=== PATIENT | female | born 1985 | race Caucasian/White ===

== ENCOUNTER 2017-08-22 18:41 | Emergency (ER) | payer SELFPAY ==
[2017-08-22 19:04] VITALS: BP 164/107
--- NOTE | 2017-08-22 19:30 | UC ---
Abdominal Pain Female HPI - HPI Summary HPI Summary: 32 yo female with constant RLQ abd pain since 6PM yesterday n/v x 3 hurts to move no UTI symptoms hx Hep C and DM11 has had an intentional 80 lb wt loss in past year - History of Current Complaint Chief Complaint: UCAbdominalPain Stated Complaint: ABDOMINAL PAIN Time Seen by Provider: 08/22/17 19:09 Hx Obtained From: Patient Hx Last Menstrual Period: 08/10/17 tubal Onset/Duration: Gradual Onset, Lasting Hours Timing: Constant Severity Initially: Severe Severity Currently: Severe Pain Intensity: 9 Pain Scale Used: 0-10 Numeric Location: Discrete At: RLQ Radiates: No Character: Aching, Dull Aggravating Factor(s): Movement Associated Signs and Symptoms: Positive: Nausea, Vomiting Allergies/Adverse Reactions: Allergies Allergy/AdvReac Type Severity Reaction Status Date / Time codeine Allergy Intermediate Hives Verified 08/22/17 19:04 Home Medications: Home Medications metFORMIN* [Glucophage 500 MG TAB *] 500 mg PO BID 08/22/17 [History Confirmed 08/22/17] PMH/Surg Hx/FS Hx/Imm Hx Previously Healthy: Yes Endocrine History: Diabetes Cardiovascular History: Hypertension Other History Of: Hepatitis C - Surgical History Surgical History: Yes Surgery Procedure, Year, and Place: c-sections x4 - Family History Known Family History: Positive: Hypertension - Social History Alcohol Use: None Substance Use Type: None Smoking Status (MU): Heavy Every Day Tobacco Smoker Type: Cigarettes Amount Used/How Often: 1/2 ppd Review of Systems Constitutional: Negative Skin: Negative Eyes: Negative ENT: Negative Respiratory: Negative Cardiovascular: Negative Gastrointestinal: Abdominal Pain, Vomiting, Nausea Genitourinary: Negative Motor: Negative Neurovascular: Negative Musculoskeletal: Negative Neurological: Negative Psychological: Negative Is Patient Immunocompromised?: No All Other Systems Reviewed And Are Negative: Yes Physical Exam Triage Information Reviewed: Yes Appearance: Well-Appearing, Well-Nourished, Pain Distress Vital Signs: Initial Vital Signs Temp 98.5 F 08/22/17 18:56 Pulse 99 08/22/17 18:56 Resp 18 08/22/17 18:56 BP 164/107 08/22/17 18:56 Pulse Ox 100 08/22/17 18:56 Eyes: Positive: Conjunctiva Clear ENT: Positive: Hearing grossly normal, Uvula midline. Negative: Nasal congestion, Nasal drainage, Trismus, Muffled voice Dental: Positive: Other: - poor dentition Neck: Positive: Supple, Nontender Respiratory: Positive: Lungs clear, Normal breath sounds, No respiratory distress, No accessory muscle use Cardiovascular: Positive: RRR, No Murmur Abdomen Description: Positive: Distended. Negative: Nontender, CVA Tenderness ( R), CVA Tenderness (L), Guarding Bowel Sounds: Positive: Present Musculoskeletal: Positive: ROM Intact, No Edema Neurological: Positive: Alert Psychological Exam: Normal Skin Exam: Normal Abd Pain Female Course/Dx - Course Course Of Treatment: decline EMS transfer. willing to go to to [facility] via POV. d /w Katelynn Woo [employer] EDITOR - Differential Dx/Diagnosis Provider Diagnoses: abdominal pain of uncertain cause Discharge - Sign-Out/Discharge Documenting (check all that apply): Discharge - Discharge Plan Condition: Stable Disposition: TRANS HIGHER LVL OF CARE FAC Referrals: Non Staff,Doctor [Primary Care Provider] - Additional Instructions: To [facility] ER they are expecting you don't ear or drink anything You need further investigation of you symptoms tonight I spoke to Katelynn Woo, SCI[employer]IFIC PUBLICATIONS EDITOR - Billing Disposition and Condition Condition: STABLE Disposition: EMTALA Images Front/Back of Body, Lg ([place]): 1 - tender here
== END 2017-08-22 19:28 | disposition short-term general hospital (02) ==
LOC: UCCORT 18:41
DX: R10.31 Right lower quadrant pain (principal); Z88.5 Allergy status to narcotic agent; F17.210 Nicotine dependence, cigarettes, uncomplicated
CPT/HCPCS: 81003; 84702; 99202; G0463

== ENCOUNTER 2017-10-26 11:13 | Emergency (ER) | payer SELFPAY ==
[2017-10-26 11:39] VITALS: BP 131/71
[2017-10-26] MEDS ORDERED: Ketorolac INJ* 60 MG/2 ML VIAL IV PUSH ONE (11:58)
[2017-10-26] MEDS ORDERED: Ketorolac INJ* 60 MG/2 ML VIAL IM ONE (12:03)
--- NOTE | 2017-10-26 12:40 | RAD ---
INDICATION: Severe lower abdominal pain. Question renal stone. History of renal stones and cysts. COMPARISON: No relevant prior exams available on the [facility] PACS for comparison. TECHNIQUE: Multidetector CT images were obtained from the lung bases to the ischial tuberosities. Evaluation of the viscera is limited without IV contrast. Multiplanar reformation. REPORT: Unremarkable visualized inferior thorax. Unremarkable unenhanced liver. Potential 2 mm calcified stone within the dependent portion of the gallbladder at the fundus. Negative for biliary dilatation. Unremarkable pancreas and spleen. Negative for CT abnormality of the upper GI, small bowel, appendix visualized medial posterior to the cecum, or colon. Negative for ascites, free air, hernias. Normal adrenal glands. Negative for urolithiasis or hydronephrosis. Small cortical cyst at the midpole of the RIGHT kidney. No suspicious focal renal lesions evident within limits of noncontrast CT. No abnormality of the nondilated ureters. Moderately distended urinary bladder with normal wall thickness. Unremarkable leftward deviated anteverted uterus. 2.7 cm maximum dimension relative hyperdense region at the LEFT adnexa concerning for a potential hemorrhagic ovarian cyst. Unremarkable RIGHT adnexal region. Negative for lymphadenopathy. Normal diameter abdominal aorta and iliac arteries. Physiologic distention of the IVC. Bilateral L5 spondylolysis with minimal grade 1 L5-S1 anterolisthesis. IMPRESSION: 1. Negative for urolithiasis or hydronephrosis. 2. Indeterminant findings at the LEFT adnexal region concerning for potential hemorrhagic cyst of the LEFT ovary. Consider pelvic ultrasound for further evaluation. 3. Potential cholelithiasis.
--- NOTE | 2017-10-26 12:56 | UC ---
Abdominal Pain Female HPI - HPI Summary HPI Summary: lower abdominal pain x 1 day pain is sever 10 out of 10 radiating to her groin and back worse with movement , better, with rest no n/v/d/c , no dysuria - History of Current Complaint Chief Complaint: UCAbdominalPain Stated Complaint: ABD/BACK PAIN/[place] Time Seen by Provider: 10/26/17 11:46 Hx Obtained From: Patient Hx Last Menstrual Period: 09/30/17 Onset/Duration: Gradual Onset, Lasting Days - 1, Still Present Timing: Constant Severity Initially: Moderate Severity Currently: Severe Pain Intensity: 10 Location: Suprapubic Radiates to: Back, Inguinal Character: Cramping, Sharp, Tearing Aggravating Factor(s): Nothing Alleviating Factor(s): Nothing Associated Signs and Symptoms: Positive: Nausea. Negative: Fever, Cough, Chest Pain, Dizzy, Constipation, Blood in Stool, Urinary Symptoms, Decreased Appetite , Vaginal Bleeding, Vaginal Discharge, Vomiting, Diarrhea, Other: Allergies/Adverse Reactions: Allergies Allergy/AdvReac Type Severity Reaction Status Date / Time codeine Allergy Intermediate Hives Verified 10/26/17 11:37 Home Medications: Home Medications Ibuprofen TAB* [Advil TAB*] 800 mg PO Q6H PRN 10/26/17 [History Confirmed ] PMH/Surg Hx/FS Hx/Imm Hx - Additional Past Medical History Additional PMH: Hep C Endocrine History: Diabetes Other History Of: Hepatitis C - Surgical History Surgical History: Yes Surgery Procedure, Year, and Place: - TUBAL - Family History Known Family History: Positive: Hypertension - Social History Alcohol Use: None Substance Use Type: None Smoking Status (MU): Heavy Every Day Tobacco Smoker Type: Cigarettes Amount Used/How Often: 1/2 ppd Review of Systems Constitutional: Chills Skin: Negative Eyes: Negative ENT: Negative Respiratory: Negative Cardiovascular: Negative Gastrointestinal: Abdominal Pain, Vomiting, Diarrhea, Nausea Genitourinary: Negative Is Patient Immunocompromised?: No All Other Systems Reviewed And Are Negative: Yes Physical Exam Triage Information Reviewed: Yes Appearance: Well-Appearing, Pain Distress Vital Signs: Initial Vital Signs Temp 98.3 F 10/26/17 11:34 Pulse 89 10/26/17 11:34 Resp 16 10/26/17 11:34 BP 131/71 06/12/18 11:34 Pulse Ox 100 10/26/17 11:34 Vital Signs Reviewed: Yes Eyes: Positive: Conjunctiva Clear ENT: Positive: Normal ENT inspection, Hearing grossly normal, Pharynx normal Neck: Positive: Supple, Nontender, No Lymphadenopathy Respiratory: Positive: Chest non-tender, Lungs clear, Normal breath sounds Cardiovascular: Positive: RRR, No Murmur, Pulses Normal Abdomen Description: Positive: Soft, Other: - duffuse tenderness. Negative: CVA Tenderness (R), CVA Tenderness (L), Distended Bowel Sounds: Positive: Present Diagnostics - Laboratory Diagnostic Studies Completed/Ordered: IMPRESSION: CT abd/pelv: 1. Negative for urolithiasis or hydronephrosis. 2. Indeterminant findings at the LEFT adnexal region concerning for potential hemorrhagic. cyst of the LEFT ovary. Consider pelvic ultrasound for further evaluation. 3. Potential cholelithiasis. Abd Pain Female Course/Dx - Differential Dx/Diagnosis Provider Diagnoses: abdominal pain. overian cyst Discharge - Sign-Out/Discharge Documenting (check all that apply): Discharge/Admit/Transfer - Discharge Plan Condition: Stable Disposition: HOME Prescriptions: HYDROcodone/ACETAMIN 5-325 MG* [[place] 5-325 TAB*] 1 tab PO Q6H PRN #20 tab MDD 4 PRN Reason: Pain Sulfamethox/Trimethoprim DS* [Bactrim DS 800/160 TAB*] 1 tab PO BID #14 tab Patient Education Materials: Ovarian Cyst (ED), Urinary Tract Infection in Women (DC) Referrals: No Primary Care Phys,NOPCP [Primary Care Provider] - 2 Days - Billing Disposition and Condition Condition: STABLE Disposition: Home
== END 2017-10-26 12:58 | disposition home or self-care (01) ==
LOC: UCCORT 11:13
DX: R10.30 Lower abdominal pain, unspecified (principal); N83.202 Unspecified ovarian cyst, left side; R19.7 Diarrhea, unspecified; R11.2 Nausea with vomiting, unspecified; E11.9 Type 2 diabetes mellitus without complications; F17.210 Nicotine dependence, cigarettes, uncomplicated; Z88.5 Allergy status to narcotic agent
CPT/HCPCS: 74176; 81003; 87077; 87086; 87186; 96372; 99212; G0463; J1885

== ENCOUNTER → 2017-12-24 17:30 | Emergency (ER) | payer MEDICAID ==
[~2017-12-24 17:30] MED LIST: Ketorolac INJ* 30 MG/ML 1 ML VIAL IM ONE
[2017-12-24 18:08] VITALS: BP 129/85
--- NOTE | 2017-12-24 18:55 | UC ---
Upper Extremity HPI - HPI Summary HPI Summary: 32 y/o female presents to the urgent care c/o B/L arm and shoulder pain for the past week. Pt reports she has Hx of RA since 2016. 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 Her pain is 9/10 sharp in both shoulders w/ decrease ROM and radiating to both arm. Also w/ mild muscle neck pain. Pt states she took Ibuprofen PO 800mg this morning at 1000AM w/o any improvement. Pt states all NSAIDs don't work for her and she requests Oxycodone to be able to sleep at night time. Pt denies fever, numbness or tingling over the upper extremities, SOB, chest pain, abdominal pain, N/V/D. LMP: 11/26/2017 w / regular menstrual cycles and Hx of B/L tubal ligation. - History of Current Complaint Chief Complaint: UCUpperExtremity Stated Complaint: PAIN FROM SHOULDERS TO FINGERS (MARY) Time Seen by Provider: 12/24/17 18:52 Hx Obtained From: Patient Hx Last Menstrual Period: 12/03/17 ?: No - B/l tubal ligation Onset/Duration: Gradual Onset, Lasting Weeks - 1 week Severity Initially: Moderate Severity Currently: Severe Pain Intensity: 9 Pain Scale Used: 0-10 Numeric Location Of Pain: Is Discrete @ - neck and B/L shoulder, Radiates To - B/L arms Character: Dull, Aching, Spasmodic Aggravating Factor(s): Movement, Lifting, Extension, Abduction Alleviating Factor(s): OTC Meds, Rest Associated Signs And Symptoms: Positive: Numbness/Tingling - B/L arms. Negative : Swelling, Redness, Fever, Weakness Related History: Dominant Hand Right - Risk Factors Non-Orthopedic Risk Factor: Negative DVT Risk Factors: Negative Septic Arthritis Risk Factor: Negative - Allergies/Home Medications Allergies/Adverse Reactions: Allergies Allergy/AdvReac Type Severity Reaction Status Date / Time codeine Allergy Intermediate Hives Verified 10/26/17 11:37 PMH/Surg Hx/FS Hx/Imm Hx Previously Healthy: Yes Endocrine History: Diabetes Other Endocrine History: RA Other History Of: Hepatitis C - Surgical History Surgical History: Yes Surgery Procedure, Year, and Place: - TUBAL - Family History Known Family History: Positive: Hypertension, Diabetes Family History: RA - Social History Occupation: Disabled Lives: With Family Alcohol Use: None Substance Use Type: None Smoking Status (MU): Heavy Every Day Tobacco Smoker Type: Cigarettes Amount Used/How Often: 1/2 ppd Household Exposure Type: Cigarettes Review of Systems Constitutional: Negative Skin: Negative Eyes: Negative ENT: Negative Respiratory: Negative Cardiovascular: Negative Gastrointestinal: Negative Genitourinary: Negative Motor: Negative Neurovascular: Negative Musculoskeletal: Decreased ROM - B/L shoulder, Other: - B/L shoulder pain radiating to arms, neck Neurological: Headache Psychological: Negative Is Patient Immunocompromised?: No All Other Systems Reviewed And Are Negative: Yes Physical Exam - Summary Physical Exam Summary: Vital signs:reviewed General: Patient is a well developed female without any distress that is laying comfortably in the examining table w/o any apparent distress. Skin: [place], warm, dry HEAD AND FACE: No signs of trauma. EYES: PERRLA, EOMI x 2. EARS: Hearing grossly intact. MOUTH: Oropharynx within normal limits. NECK: Supple, trachea is midline, no cervical lymphadenopathy, no JVD, no carotid bruit, no c-spine tenderness, neck with decrease ROM on flexion and Rt lateral bending due to pain. No meningeal signs, no Kernig's or brudzinskis signs. Decrease ROM on bending forward and Rt lateral bending due to pain. CHEST: Symmetric, no tenderness at palpation LUNGS: CTA bilaterally, no rales, rhonchi or wheezing CVS: RRR, no murmur, rub, or gallop ABDOMEN: soft and Nontender without masses, no guarding or rebound. Bowel sounds are active. No Hepato-splenomegaly. No signs of inguinal hernias. BACK: Patient walked into the urgent care room with symmetric ambulation, No signs of limping, antalgic, able to bear weight. No signs of trauma, no soft tissue or muscle tenderness, RT side upper back spasm around trapezius. No masses palpated. No Point tenderness over b/L shoulder, no swelling or ecchymosis observed, No CVAT, no flank ecchymosis . No sacroiliac notch tenderness, No saddle anesthesia.FROM: flexion/ extension/ lateral bending and rotation, note if limited or causes pain Straight Leg Raise: negative.Patellar reflexes: brisk, symmetric Muscle strength lower extremities. Dorsiflexion/ plantar flexion of ankles. Heel/ toe walk Lower extremities: Femoral, popliteal, posterior tibial, and dorsalis pedis pulses with in normal, Musculoskeltal: L shoulder is without obvious asymmetry or deformity when compared to the R shoulder. No ecchymosis and bruising, no crepitus. No bony deformity or prominence of humeral head. No erythema, warmth. No Point Tenderness to palpation over the clavicles, or scapulas. positive tenderness over Acromioclavicular joint and humeral head w/o swelling, NT to palpation of the bicipital groove . NT to palpation of the muscles of the sternocleidomastoid, pectoralis, biceps/triceps, deltoid, Point tenderness and muscle spasm over B/L trapezius on palpation, . Limited ROM due to pain especially in adduction and abduction.on both passive and active, internal/ external rotation, flexion/extension. "empty can and drop arm test unable to perform due to pain. No axillary tenderness or lymphadenopathy. Normal sensation over the deltoid and fingers. Distal motor and neurovascular status is intact. A&O x4, GCS 15. Cranial Nerve II-XII intact. Motor and sensory exam nonfocal. Moves all extremities. Speech clear. Gait normal. Psychological: WNL Skin: dry and warm Triage Information Reviewed: Yes Vital Signs: Initial Vital Signs Temp 97.7 F 12/24/17 18:05 Pulse 91 12/24/17 18:05 Resp 16 12/24/17 18:05 BP 129/85 12/24/17 18:05 Pulse Ox 100 12/24/17 18:05 Upper Extremity Course/Dx - Course Course Of Treatment: 32 y/o female presents to the urgent care c/o B/L arm and shoulder pain for the past week. Pt reports she has Hx of RA since 2016. 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 Her pain is 9/ 10 sharp in both shoulders w/ decrease ROM and radiating to both arm. Also w/ mild muscle neck pain. Pt states she took Ibuprofen PO 800mg this morning at 1000AM w/o any improvement. Pt states all NSAIDs don't work for her and she requests Oxycodone to be able to sleep at night time. Pt denies fever, numbness or tingling over the upper extremities, SOB, chest pain, abdominal pain, N/V/D. LMP: 11/26/2017 w/ regular menstrual cycles and Hx of B/L tubal ligation.Hx obtained. Cervical Spine X-ray ordered: Mild Kyphosis of cervical spine w/o any other radiologic abdnormality. Pt probably w/ probably Muscle spasm. I did an I stop on Pt and she was Rx [place] PO on 10/2017. Pt Rx Meloxicam PO, Prednisone PO and Flexeril PO to alleviate symptoms. Given referral w/ a [facility] PCP for further mangement on her RA. Pt was upset sicne she was not Rx [place] for pain. I explained Pt that her symptoms are more likely due to muscel spasm and a muscle relaxant will improve her symptoms. D/C instructions explained. Pt understood and agreed. Pt left clinic hemodynamically stable, A&OX3. - Differential Dx/Diagnosis Differential Diagnosis/HQI/PQRI: Arthritis, Fracture (Closed), Strain, Sprain, Other - RA, fibromyalgia, torticulitis, stroke, Provider Diagnoses: 1- B/L shoulder pain. 2- Muscle spasm Discharge - Sign-Out/Discharge Documenting (check all that apply): Patient Departure - D/C home - Discharge Plan Condition: Stable Disposition: HOME Prescriptions: Cyclobenzaprine TAB* [Flexeril 10 MG TAB*] 10 mg PO TID PRN #21 tab PRN Reason: Spasms - Muscle Meloxicam 7.5 mg PO Q24HR #10 tablet predniSONE TAB* [Deltasone 20 MG TAB*] 20 mg PO DAILY #11 tab Patient Education Materials: Muscle Spasm (ED), Shoulder Pain (ED) Referrals: [facility] PHYSICIAN REFERRAL [Outside] Additional Instructions: 1- Please take Meloxicam PO as directed after meals for pain. Take Prednisone as directed to alleviate inflammation 2- Take Flexeril PO as directed for muscle spasm. Please do not drive while taking the medication. 3- Avoid strenuous exercise of heavy lifting. 4- Please follow up with a PCP in 1 week from the [facility] network for further management in your Rheumathoid arthritis. - Billing Disposition and Condition Condition: STABLE Disposition: Home
--- NOTE | 2017-12-24 19:40 | RAD ---
Indication: Neck/shoulder pain and bilateral arm numbness for one week. Comparison: No relevant prior exams available on the [facility] [place] for [place]. Technique: AP, open-mouth odontoid, lateral, and oblique views cervical spine. Report: Mild cervical kyphosis without facet subluxation at any level. Negative for fracture. Preserved disc spaces and unremarkable prevertebral soft tissue contours. The oblique views are negative for osseous foraminal stenosis. IMPRESSION: #. Mild kyphosis of the cervical spine without additional radiographic abnormality.
== END | disposition home or self-care (01) ==
LOC: UCCORT 17:30
DX: M25.512 Pain in left shoulder (principal); M25.511 Pain in right shoulder; M62.838 Other muscle spasm; M54.2 Cervicalgia; Z88.5 Allergy status to narcotic agent; F17.210 Nicotine dependence, cigarettes, uncomplicated
CPT/HCPCS: 72050; 96372; 99212; G0463; J1885